=== PATIENT | male | born 1940 | race Native Hawaiian/Other Pacific Islander ===

== ENCOUNTER 2020-03-09 18:23 | Emergency (ER) | payer OTHER ==
[~2020-03-09] VITALS: Ht 165.1 cm; Wt 54.4 kg
[2020-03-09 18:23] VITALS: TEMP 98.3
[2020-03-09 19:16] LABS: PLATELET COUNT 176 K/uL (142-355)
[2020-03-09 19:20] LABS: POTASSIUM 5.4 mmol/L (3.6-5.2)
[2020-03-09 20:10] VITALS: BP 103/67
[2020-03-10] MEDS ORDERED: ACETAMINOPHEN LIQUID PO (03:56)
[2020-03-10] MEDS ORDERED: TYLENOL325 MG PO ×2 (03:58→04:02)
[2020-03-10] MEDS ORDERED: ASPIRIN LOW DOS81 MG PO (04:05)
[2020-03-10] MEDS ORDERED: LORA0.5T17 PO (04:08)
[2020-03-10] MEDS ORDERED: LIPITOR40 MG PO (04:15)
[2020-03-10] MEDS ORDERED: CLOPIDOGREL75 MG PO (04:17)
[2020-03-10] MEDS ORDERED: BISACODYL LAXAT10 MG RE (04:28)
[2020-03-10] MEDS ORDERED: FINA5TAB2 PO (04:30)
[2020-03-10] MEDS ORDERED: HYDR5TAB9 PO (04:34)
[2020-03-10] MEDS ORDERED: LEVO-T25 MCG PO (04:36)
[2020-03-10] MEDS ORDERED: LISI5TAB10 PO (04:38)
[2020-03-10] MEDS ORDERED: [UNRECOGNIZED DRUG - OTHER] OPTH (05:00)
[2020-03-10] MEDS ORDERED: METOPROLOL25 M1 PO (05:03)
[2020-03-10] MEDS ORDERED: NITROGLYCERIN0.4 MG SL (05:07)
[2020-03-10] MEDS ORDERED: SPIRONOLACTONE PO (05:11)
[2020-03-10] MEDS ORDERED: SPIRONOLACT25 MG PO (10:23)
== END 2020-03-09 20:10 | disposition other institution (70) ==
LOC: ED 18:23
PROVIDERS: Family Medicine
DX: F03.91 Unspecified dementia, unspecified severity, with behavioral disturbance (principal); R45.1 Restlessness and agitation; Z11.59 Encounter for screening for other viral diseases; Z04.6 Encounter for general psychiatric examination, requested by authority
CPT/HCPCS: 36415; 80053; 85027; 87635; 93005; 99285; U0003